=== PATIENT | female | born 1990 | race Caucasian/White ===

== ENCOUNTER 2018-09-26 19:36 | Emergency (ER) | payer SELFPAY ==
[2018-09-26 21:10] LABS: ABSOLUTE BASOPHILS # (AUTO) 0.1 10^3/uL (0.0-0.2); ABSOLUTE LYMPHOCYTES (AUTO) 2.1 10^3/uL (0.5-4.7); ABSOLUTE MONOCYTES (AUTO) 0.5 10^3/uL (0.1-1.4); ABSOLUTE NEUT (AUTO) 5.8 10^3/uL (1.7-8.2); BASOPHILS % (AUTO) 0.6 % (0-2); EOSINOPHILS % (AUTO) 0.4 % (0-6); HEMOGLOBIN 14.6 g/dL (12.0-15.5); LYMPHOCYTES % (AUTO) 24.9 % (13-45); MEAN CORPUSCULAR HEMOGLOBIN 30.9 pg (27.0-33.4); MEAN CORPUSCULAR HGB CONC 34.8 g/dL (32.0-36.0); MEAN CORPUSCULAR VOLUME 89 fl (80-97); MONOCYTES % (AUTO) 5.7 % (3-13); PLATELET COUNT 241 10^3/uL (150-450); RED BLOOD COUNT 4.73 10^6/uL (3.72-5.28); RED CELL DISTRIBUTION WIDTH 12.9 % (11.5-14.0); SEGMENTED NEUTROPHILS % (AUTO) 68.4 % (42-78); TOTAL CELLS COUNTED % (AUTO) 100 %; WHITE BLOOD COUNT 8.5 10^3/uL (4.0-10.5)
[2018-09-26 21:21] LABS: APPEARANCE,URINE CLOUDY; BILIRUBIN,URINE NEGATIVE (NEGATIVE); GLUCOSE, URINE NEGATIVE (NEGATIVE); KETONES,URINE 80 mg/dL (NEGATIVE); LEUKOCYTE ESTERASE,URINE TRACE (NEGATIVE); NITRITE,URINE POSITIVE (NEGATIVE); PROTEIN,URINE 30 mg/dL (NEGATIVE)
[2018-09-26 21:22] LABS: COLOR,URINE DARK YELLOW
[2018-09-26 21:30] LABS: ALANINE AMINOTRANSFERASE 20 U/L (9-52); ALBUMIN 4.9 g/dL (3.5-5.0); ALKALINE PHOSPHATASE 72 U/L (38-126); ANION GAP 17 (5-19); ASPARTATE AMINO TRANSFERASE 20 U/L (14-36); BILIRUBIN,DIRECT 0.4 mg/dL (0.0-0.4); BILIRUBIN,TOTAL 2.2 mg/dL (0.2-1.3); BLOOD UREA NITROGEN 15 mg/dL (7-20); CALCIUM 9.9 mg/dL (8.4-10.2); CARBON DIOXIDE 22 mmol/L (22-30); CHLORIDE 102 mmol/L (98-107); GLUCOSE 74 mg/dL (75-110); LIPASE 70.5 U/L (23-300); POTASSIUM 4.2 mmol/L (3.6-5.0); TOTAL PROTEIN 8.5 g/dL (6.3-8.2)
[2018-09-26] MEDS ORDERED: NORMAL SALINE 1000 ML 1,000 ML IV ONE (23:15)
[2018-09-26] MEDS ORDERED: SUCRALFATE 1 GM TABLET PO ONE (23:17)
[2018-09-26] MEDS ORDERED: FAMOTIDINE 20 MG TABLET PO ONE (23:17)
[2018-09-26] MEDS ORDERED: METOCLOPRAMIDE HCL ORAL SOLN 10 MG/10 ML UDCUP PO ONE (23:18)
[2018-09-26] MEDS ORDERED: LIDOCAINE 2% VISCOUS SOLN 20 ML UDCUP PO ONE (23:18)
[2018-09-26] MEDS ORDERED: MAG HYDROX/AL HYDROX/SIMETH SUSP 30 ML UDCUP PO ONE (23:18)
--- NOTE | 2018-09-26 23:21 | ER Document Report ---
ED General - General Chief Complaint: Abdominal Pain Stated Complaint: ABDOMINAL PAIN Time Seen by Provider: 09/26/18 21:28 Notes: Patient is a 28-year-old female without chronic medical problems, history of prior cholecystectomy who presents with several days of ongoing epigastric abdominal pain with involvement of the right upper quadrant and upper back. States the pain comes and goes. Worsened by eating or drinking. Notes associated nausea and vomiting as well as loose stools. States that she has a long-standing history of recurrent pain identical to today's. She states that this has been ongoing for at least 5 years ever since she had a cholecystectomy. She does not follow with a GI doctor her general physician regarding this issue. She has tried Zofran at home without improvement of her symptoms. She denies fever, chest pain, shortness of breath, but does also note mild dysuria that is been ongoing for the past 24 hours. TRAVEL OUTSIDE OF THE [place] IN LAST 30 DAYS: No - Related Data Allergies/Adverse Reactions: latex Allergy (Verified 09/26/18 20:52) morphine Allergy (Verified 09/26/18 20:52) Past Medical History - General Information source: Patient - Social History Smoking Status: Never Smoker Frequency of alcohol use: None Drug Abuse: Marijuana Lives with: Spouse/Significant other Family History: Reviewed & Not Pertinent Patient has suicidal ideation: No Patient has homicidal ideation: No Renal/ Medical History: Denies: Hx Peritoneal Dialysis Past Surgical History: Reports: Hx Cholecystectomy Review of Systems - Review of Systems Notes: Constitutional: Negative for fever. HENT: Negative for sore throat. Eyes: Negative for visual changes. Cardiovascular: Negative for chest pain. Respiratory: Negative for shortness of breath. Gastrointestinal: Positive for abdominal pain and vomiting Genitourinary: Positive for dysuria. Musculoskeletal: Negative for back pain. Skin: Negative for rash. Neurological: Negative for headaches, weakness or numbness. 10 point ROS negative except as marked above and in HPI. Physical Exam - Vital signs Vitals: Temp Pulse Resp BP Pulse Ox 98.4 F 89 18 138/83 H 98 09/26/18 19:51 09/26/18 19:51 09/26/18 19:51 09/26/18 19:51 09/26/18 19:51 Interpretation: Normal Notes: PHYSICAL EXAMINATION: GENERAL: Well-appearing, well-nourished and in no acute distress. HEAD: Atraumatic, normocephalic. EYES: Pupils equal round and reactive to light, extraocular movements intact, sclera anicteric, conjunctiva are normal. ENT: nares patent, oropharynx clear without exudates. Moderate dry mucous membranes. NECK: Normal range of motion, supple without lymphadenopathy LUNGS: Breath sounds clear to auscultation bilaterally and equal. No wheezes rales or rhonchi. HEART: Regular rate and rhythm without murmurs ABDOMEN: Soft, mild epigastric abdominal tenderness but no other localized areas of tenderness, normoactive bowel sounds. No guarding, no rebound. No masses appreciated. EXTREMITIES: Normal range of motion, no pitting or edema. No cyanosis. NEUROLOGICAL: No focal neurological deficits. Moves all extremities spontaneously and on command. PSYCH: Normal mood, normal affect. SKIN: Warm, Dry, normal turgor, no rashes or lesions noted. Course - Re-evaluation Re-evalutation: 09/26/18 23:16 Patient presents with epigastric abdominal pain with associated reflux symptoms most consistent with likely gastritis. Patient has no focal abdominal tenderness on examination. Patient has a remote history of a cholecystectomy. She reports that she has a long-standing history of similar symptoms, has been ongoing for at least 5-6 years. Lipase is normal. No LFT changes. Urinalysis is also consistent with an acute urinary tract infection although not pyelonephritis and I do not believe that accounts for her upper abdominal pain and vomiting. She has been started on cephalexin for treatment and a culture has been sent. Based on history and exam, I do not suspect ACS, pulmonary embolus, SBO, mesenteric ischemia, acute pancreatitis, biliary pathology, or an abdominal aortic dissection. Patient has had improvement of symptoms here with a GI cocktail. At this time will discharge with return precautions and follow- up recommendations. Verbal discharge instructions given a the bedside and opportunity for questions given. Medication warnings reviewed. Patient is in agreement with this plan and has verbalized understanding of return precautions and the need for primary care follow-up in the next 24-72 hours. - Vital Signs Vital signs: Temp Pulse Resp BP Pulse Ox 97.4 F 74 16 115/69 98 09/27/18 00:43 09/27/18 00:43 09/27/18 00:43 09/27/18 00:43 09/27/18 00:43 - Laboratory Result Diagrams: 09/26/18 20:55 09/26/18 20:55 Laboratory results interpreted by me: 09/26/18 09/26/18 20:37 20:55 Glucose 74 L Total Bilirubin 2.2 H Total Protein 8.5 H Urine Protein 30 H Urine Ketones 80 H Urine Blood SMALL H Urine Nitrite POSITIVE H Urine Urobilinogen 2.0 H Ur Leukocyte Esterase TRACE H Discharge - Discharge Clinical Impression: Epigastric abdominal pain Nausea and vomiting Qualifiers: Vomiting type: unspecified Vomiting Intractability: non-intractable Qualified Code(s): R11.2 - Nausea with vomiting, unspecified Urinary tract infection Qualifiers: Urinary tract infection type: acute cystitis Hematuria presence: without hematuria Qualified Code(s): N30.00 - Acute cystitis without hematuria Condition: Good Disposition: HOME, SELF-CARE Additional Instructions: Your symptoms appear to be most consistent with stomach or upper intestinal irritation. Please begin taking famotidine 40 mg in the morning and 40 mg at night. Please also take Carafate before meals. Take Reglan as needed for nausea or vomiting you may also take medicine such as Pepto-Bismol or Tums to assist with your pain. Please return to emergency department immediately if you have worsening of your pain, shortness of breath, vomiting, become unable to exert yourself due to pain or difficulty breathing, you pass out, or have any pain that radiates into your arms, jaw, or back. Please also return if you have any additional symptoms that are concerning to you. As we have discussed, the most important thing is lifestyle changes. You need to avoid smoking, sodas, tea, coffee, alcohol, spicy foods, and acidic foods such as citrus fruits, tomato based products, berries, and most fruit juices. Your urine shows findings consistent with a urinary tract infection. Please take all the antibiotics as directed even if your symptoms have improved. Please follow-up with your primary care physician as needed. Return to emergency room if you develop fever >101F, persistent vomiting, become lethargic , have severe pain in your sides, or any other symptoms that are concerning to you. Prescriptions: Cephalexin Monohydrate [Keflex 500 mg Capsule] 500 mg PO Q6H 5 Days capsule Famotidine 40 mg PO BID #60 tablet Metoclopramide HCl [Reglan 10 mg Tablet] 1 - 2 tab PO ASDIR PRN #25 tablet PRN Reason: Sucralfate [Carafate 1 gm Tablet] 1 gm PO ACHS #120 tablet Forms: Parent Work Note
[2018-09-26] MEDS ORDERED: CEPHALEXIN 500 MG CAPSULE PO ONE (23:22)
[2018-09-27 00:45] VITALS: BP 115/69
== END 2018-09-27 00:43 | disposition home or self-care (01) ==
LOC: ER 19:36
DX: N30.00 Acute cystitis without hematuria (principal); R10.13 Epigastric pain; R10.11 Right upper quadrant pain; M54.89 Other dorsalgia; R11.2 Nausea with vomiting, unspecified; R19.4 Change in bowel habit; R30.0 Dysuria; F12.10 Cannabis abuse, uncomplicated; Z90.49 Acquired absence of other specified parts of digestive tract; Z88.5 Allergy status to narcotic agent; Z91.040 Latex allergy status
CPT/HCPCS: 99284; 96360; 36415; 87086; 83690; 85025; 81025; 80053; 81001; J3490; J7030

== ENCOUNTER 2018-11-08 21:23 | Emergency (ER) | payer SELFPAY ==
[2018-11-09] MEDS ORDERED: SULFAMETHOXAZOLE/TRIMETHOPRIM 800-160 MG TABLET PO ONE (00:46)
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
[2018-11-09] MEDS ORDERED: ALPRAZOLAM 0.5 MG TABLET PO ONE (00:55)
[2018-11-09 02:32] LABS: APPEARANCE,URINE CLEAR; BILIRUBIN,URINE NEGATIVE (NEGATIVE); COLOR,URINE YELLOW; GLUCOSE, URINE NEGATIVE (NEGATIVE); KETONES,URINE NEGATIVE (NEGATIVE); LEUKOCYTE ESTERASE,URINE NEGATIVE (NEGATIVE); NITRITE,URINE POSITIVE (NEGATIVE); PROTEIN,URINE NEGATIVE (NEGATIVE); URINE SPECIFIC GRAVITY 1.015; UROBILINOGEN,URINE NEGATIVE mg/dL (<2.0)
[2018-11-09 02:45] LABS: ABSOLUTE EOSINOPHILS # (AUTO) 0.1 10^3/uL (0.0-0.6); ABSOLUTE LYMPHOCYTES (AUTO) 2.4 10^3/uL (0.5-4.7); ABSOLUTE MONOCYTES (AUTO) 0.5 10^3/uL (0.1-1.4); ABSOLUTE NEUT (AUTO) 4.7 10^3/uL (1.7-8.2); BASOPHILS % (AUTO) 0.1 % (0-2); EOSINOPHILS % (AUTO) 1.2 % (0-6); HEMATOCRIT 39.2 % (36.0-47.0); HEMOGLOBIN 13.3 g/dL (12.0-15.5); LYMPHOCYTES % (AUTO) 30.7 % (13-45); MEAN CORPUSCULAR HEMOGLOBIN 30.4 pg (27.0-33.4); MEAN CORPUSCULAR HGB CONC 33.9 g/dL (32.0-36.0); MEAN CORPUSCULAR VOLUME 90 fl (80-97); MONOCYTES % (AUTO) 6.5 % (3-13); PLATELET COUNT 241 10^3/uL (150-450); RED BLOOD COUNT 4.37 10^6/uL (3.72-5.28); RED CELL DISTRIBUTION WIDTH 13.1 % (11.5-14.0); SEGMENTED NEUTROPHILS % (AUTO) 61.5 % (42-78); TOTAL CELLS COUNTED % (AUTO) 100 %; WHITE BLOOD COUNT 7.7 10^3/uL (4.0-10.5)
[2018-11-09 02:53] LABS: URINE AMPHETAMINES SCREEN NEGATIVE; URINE BARBITURATES SCREEN NEGATIVE; URINE BENZODIAZEPINES SCREEN NEGATIVE; URINE COCAINE SCREEN NEGATIVE; URINE MARIJUANA (THC) SCREEN NEGATIVE; URINE METHADONE SCREEN NEGATIVE; URINE PHENCYCLIDINE SCREEN NEGATIVE
[2018-11-09 03:04] LABS: ACETAMINOPHEN < 10 ug/mL (10-30); ALANINE AMINOTRANSFERASE 20 U/L (9-52); ALBUMIN 4.5 g/dL (3.5-5.0); ALCOHOL < 10 mg/dL (NONE DETECTED); ALKALINE PHOSPHATASE 53 U/L (38-126); ANION GAP 13 (5-19); ASPARTATE AMINO TRANSFERASE 13 U/L (14-36); BILIRUBIN,DIRECT 0.1 mg/dL (0.0-0.4); BILIRUBIN,TOTAL 0.5 mg/dL (0.2-1.3); BLOOD UREA NITROGEN 16 mg/dL (7-20); CALCIUM 9.5 mg/dL (8.4-10.2); CARBON DIOXIDE 25 mmol/L (22-30); CHLORIDE 104 mmol/L (98-107); GLUCOSE 93 mg/dL (75-110); POTASSIUM 3.4 mmol/L (3.6-5.0); SALICYLATE < 1.0 mg/dL (2.0-20.0); TOTAL PROTEIN 7.6 g/dL (6.3-8.2)
[2018-11-09] MEDS: OLANZAPINE 5 MG TABLET PO SCH ×2 (13:01→17:33)
[2018-11-09] MEDS: BENZTROPINE MESYLATE 1 MG TABLET PO SCH (13:01)
--- NOTE | 2018-11-09 13:12 | EKG REPORT ---
SEVERITY:- BORDERLINE ECG - SINUS RHYTHM BORDERLINE PROLONGED QT INTERVAL : Confirmed by: Bridget Lord MD 09-Nov-2018 13:11:41
--- NOTE | 2018-11-09 13:12 | EKG REPORT ---
SEVERITY:- DEFECTIVE ECG - ALL 12 LEADS ARE MISSING : Confirmed by: Bridget Lord MD 09-Nov-2018 13:11:49
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
--- NOTE | 2018-11-09 17:30 | ER Document Report ---
Doctor's Note Notes: 11/09/18 17:30 This 28-year-old female patient's chart was reviewed and I went and spoke with her and examined her. She came in yesterday complaining about an insect bite to the left lateral distal leg given 1 Septra DS tablet yesterday and prescriptions were written for Septra DS and Keflex. At the time on questioning , she was found to be depressed and having suicidal ideation so she was kept here. She was placed on IVC papers and started on Zyprexa and Cogentin today. She has done well today. I did examine the area on her left distal lateral leg, and it is suspicious for an MRSA type abscess. She then told me that she had another one on her back, and on her left upper medial scapular back region there is no other lesion that is starting to point with some erythema and also consistent with a MRSA abscess. The fact that she has at least 2 of these simultaneously does suggest MRSA. She will be started on Septra DS 2 tablets twice daily at this time.
[2018-11-09] MEDS ORDERED: SULFAMETHOXAZOLE/TRIMETHOPRIM 800-160 MG TABLET PO SCH (18:00)
[2018-11-09] MEDS ORDERED: ACETAMINOPHEN 325 MG TABLET PO PRN (23:17)
[2018-11-09] MEDS ORDERED: CIPROFLOXACIN HCL 500 MG TABLET PO SCH (23:30)
[2018-11-10 00:03] LABS: ABSOLUTE EOSINOPHILS # (AUTO) 0.1 10^3/uL (0.0-0.6); TOTAL CELLS COUNTED % (AUTO) 100 %
[2018-11-10 00:16] LABS: ABSOLUTE LYMPHOCYTES (AUTO) 2.3 10^3/uL (0.5-4.7); ABSOLUTE MONOCYTES (AUTO) 0.6 10^3/uL (0.1-1.4); ABSOLUTE NEUT (AUTO) 2.9 10^3/uL (1.7-8.2); BASOPHILS % (AUTO) 0.2 % (0-2); HEMOGLOBIN 13.6 g/dL (12.0-15.5); LYMPHOCYTES % (AUTO) 38.7 % (13-45); MEAN CORPUSCULAR HGB CONC 34.1 g/dL (32.0-36.0); MEAN CORPUSCULAR VOLUME 91 fl (80-97); MONOCYTES % (AUTO) 9.7 % (3-13); PLATELET COUNT 248 10^3/uL (150-450); RED BLOOD COUNT 4.41 10^6/uL (3.72-5.28); RED CELL DISTRIBUTION WIDTH 13.1 % (11.5-14.0); SEGMENTED NEUTROPHILS % (AUTO) 49.4 % (42-78); WHITE BLOOD COUNT 5.9 10^3/uL (4.0-10.5)
--- NOTE | 2018-11-10 09:52 | ER Document Report ---
Doctor's Note Notes: 11/10/18 09:48 Rounds: Chart reviewed and patient interviewed. Sleeping when I enter the room but awakened easily. Patient is being evaluated for bipolar disorder and posttraumatic stress disorder. Says she is feeling better than when she was admitted. Patient says she came in for an insect bite to her left lower leg. She has a small 2 cm lesion on the lower lateral aspect of her left lower leg, which the patient says is better since we start her on antibiotics. Not a very dramatic appearing lesion to begin with. She had been started on Cipro for possible UTI because she had positive nitrites and some bacteria in her urine. She has no symptoms of a UTI. For these reasons and the likelihood that Septra will be more likely to treat her UTIs and Cipro in this hospital, I have discontinued her Cipro and put her on Septra DS twice a day and she will be discharged on that to cover both a possible UTI and a possible MRSA infection of her left lower leg. Patient's vital signs are all essentially normal. Blood pressure 98/57 noted and will be checked. Patient appears to be medically stable for transfer or discharge. Mami Kessler MD
[2018-11-10] MEDS: BENZTROPINE MESYLATE 1 MG TABLET PO SCH (09:59)
[2018-11-10] MEDS: OLANZAPINE 5 MG TABLET PO SCH (09:59)
[2018-11-10] MEDS ORDERED: SULFAMETHOXAZOLE/TRIMETHOPRIM 800-160 MG TABLET PO SCH (10:00)
[2018-11-10 10:17] VITALS: BP 116/68
--- NOTE | 2018-11-10 11:20 | PSYCHOLOGICAL NOTE ---
Psych Note - Psych Note Date seen by psych provider: 11/10/18 Time seen by psych provider: 09:50 Psych Note: Reason for Consult:suicidal ideation Contact Permissions: Emergency Contact/Zander Peres, Conducted check-in with patient Patient reports that she is feeling better and does not have any concerns of continued thoughts of wanting to harm herself. She states that she would like to continue taking the medications and identifies her boyfriend as her support system. She states that she currently has a job with [employer] so will be able to afford medications. She states that she just needs assistance in obtaining outpatient mental health services. Clinician spoke with patient's boyfriend, Zander, who discloses he has no concerns with the patient returning home. He reports that he is willing to be part of the patient's plan of care i.e. ensure that she does not have access to medications weapons and follows through with mental health recommendations. He confirms that he will assist the patient in going to her appointment tomorrow with [facility] at 10:30 AM. Medication recommendations made by the psychiatric medical provider, Orlando Bowie MD., includes: Add Zyprexa 5MG twice a day for mood stabilization/impulse control Add Cogentin 1MG daily to curb tremor side effects often associated with antipsychotic medications Diagnosis: 296.80 (F31.9) Unspecified Bipolar Related Disorder by History R/O 309.81 (F43.10) Posttraumatic Stress Disorder Impression/Plan: Patient is recommended for rescind of IVC and is cleared from acute psychiatric services. Patient no longer meets IVC criteria per [place] GS 122C. Patient denies thoughts of wanting to harm herself. She reports that she would like to continue taking the medication prescribed and states she has no problems filling the prescriptions. She identifies her boyfriend as as her support. Behavior health team contacted the patient's boyfriend who confirms he will be part of the patient's plan of care (i.e. ensure states she does not have access to medications weapons and follows through with mental health recommendations). He reports he has no concern with the returning home at this time. Patient is recommended to follow-up with outpatient mental health services through [facility] tomorrow 11/11/2018 at 10:30 AM for continued outpatient mental health services in the form of both medication management and therapeutic intervention. Dr. Martini was consulted and the care management this patient; attending physicians in agreement with recommendations and disposition
== END 2018-11-10 11:38 | disposition home or self-care (01) ==
LOC: ER 21:23
DX: R45.851 Suicidal ideations (principal); F31.9 Bipolar disorder, unspecified; F43.10 Post-traumatic stress disorder, unspecified; S80.862A Insect bite (nonvenomous), left lower leg, initial encounter; W57.XXXA Bitten or stung by nonvenomous insect and other nonvenomous arthropods, initial encounter; Z88.6 Allergy status to analgesic agent; Z91.040 Latex allergy status
CPT/HCPCS: 36415; 80053; 80307; 81001; 84703; 85025; 87086; 87088; 87186; 93005; 93010; 99285

== ENCOUNTER 2018-11-22 01:28 | Emergency (ER) | payer SELFPAY ==
[2018-11-22 01:44] VITALS: BP 125/80
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
[2018-11-22] MEDS ORDERED: ONDANSETRON ODT 4 MG TAB (6 TAB/ER DISP) PO PRN (03:04)
== END 2018-11-22 03:16 | disposition home or self-care (01) ==
LOC: ER 01:28
DX: S06.0X1A Concussion with loss of consciousness of 30 minutes or less, initial encounter (principal); X58.XXXA Exposure to other specified factors, initial encounter; Z87.891 Personal history of nicotine dependence; Z88.6 Allergy status to analgesic agent; Z91.040 Latex allergy status
CPT/HCPCS: 70450; 99284

== ENCOUNTER 2019-03-16 19:18 | Emergency (ER) | payer SELFPAY ==
--- NOTE | 2019-03-16 20:12 | ER Document Report ---
ED Medical Screen (RME) - General Chief Complaint: Vaginal Bleeding Stated Complaint: ABDOMINAL PAIN Time Seen by Provider: 03/16/19 20:05 TRAVEL OUTSIDE OF THE [place] IN LAST 30 DAYS: No - HPI Notes: 03/16/19 20:10 Patient is a 28-year-old female with history of cholecystectomy who presents emergency department complaining of vaginal bleeding outside of her normal cycle times. Patient states that this is been ongoing for a long time, but she is having lower pelvic cramping and pain with this 1 with some vaginal discharge. She is otherwise eating and drinking without difficulty. She is urinating n ormally and having normal bowel movements. Denies GOMEZ, fever, neck pain, URI, CP, SOB, or rash. I have treated and performed a rapid initial assessment of this patient. A comprehensive ED assessment and evaluation of the patient, analysis of test results and completion of medical decision making process will be conducted by additional ED providers. PHYSICAL EXAMINATION: GENERAL: Well-appearing, well-nourished and in no acute distress. A&Ox4. Answers questions appropriately. LUNGS: Breath sounds clear to auscultation bilaterally and equal. No wheezes rales or rhonchi. HEART: Regular rate and rhythm without murmurs, rubs, gallops. ABDOMEN: Soft, nondistended abdomen. No guarding, no rebound. Normal bowel sounds present. No CVA tenderness bilaterally. + mild lower pelvic tenderness (cannot elicit thorough abd exam w/o table, however). - Related Data Allergies/Adverse Reactions: latex Allergy (Verified 11/22/18 01:40) morphine Allergy (Verified 11/22/18 01:40) Past Medical History - Social History Frequency of alcohol use: Social Drug Abuse: Marijuana Pulmonary Medical History: Reports: Hx Asthma Renal/ Medical History: Denies: Hx Peritoneal Dialysis Psychiatric Medical History: Reports: Hx Anxiety, Hx Bipolar Disorder, Hx Depression - and anxiety Past Surgical History: Reports: Hx Section - x 3, Hx Cholecystectomy, Hx Tubal Ligation Physical Exam - Vital signs Vitals: Temp Pulse Resp BP Pulse Ox 98.5 F 80 16 110/64 98 03/16/19 19:25 03/16/19 19:25 03/16/19 19:25 03/16/19 19:25 03/16/19 19:25 Course - Vital Signs Vital signs: Temp Pulse Resp BP Pulse Ox 98.5 F 80 16 110/64 98 03/16/19 19:25 03/16/19 19:25 03/16/19 19:25 03/16/19 19:25 03/16/19 19:25
[2019-03-16 20:44] LABS: APPEARANCE,URINE SLIGHTLY-CLOUDY; BILIRUBIN,URINE NEGATIVE (NEGATIVE); COLOR,URINE YELLOW; GLUCOSE, URINE NEGATIVE (NEGATIVE); KETONES,URINE NEGATIVE (NEGATIVE); LEUKOCYTE ESTERASE,URINE NEGATIVE (NEGATIVE); NITRITE,URINE NEGATIVE (NEGATIVE); PROTEIN,URINE NEGATIVE (NEGATIVE); URINE SPECIFIC GRAVITY 1.023; UROBILINOGEN,URINE NEGATIVE mg/dL (<2.0)
--- NOTE | 2019-03-16 23:04 | ER Document Report ---
ED GI/ - General Chief Complaint: Vaginal Bleeding Stated Complaint: ABDOMINAL PAIN Time Seen by Provider: 03/16/19 20:05 Primary Care Provider: [facility] [Outside] - Follow up as needed Mode of Arrival: Ambulatory Information source: Patient Notes: Patient is a 28-year-old otherwise healthy female presenting with vaginal bleeding and abnormal vaginal discharge. Patient reports she has had abnormal bleeding for several years ever since she had her tubes tied. Patient reports that she has 2-3-week long periods every month. She also reports foul-smelling thick yellowish vaginal discharge monthly. She denies any fever, nausea, vomiting or diarrhea. TRAVEL OUTSIDE OF THE [place] IN LAST 30 DAYS: No - Related Data Allergies/Adverse Reactions: latex Allergy (Verified 11/22/18 01:40) morphine Allergy (Verified 11/22/18 01:40) Past Medical History - General Information source: Patient - Social History Smoking Status: Never Smoker Frequency of alcohol use: Social Drug Abuse: Marijuana Family History: Reviewed & Not Pertinent Patient has suicidal ideation: No Patient has homicidal ideation: No Pulmonary Medical History: Reports: Hx Asthma Renal/ Medical History: Denies: Hx Peritoneal Dialysis Psychiatric Medical History: Reports: Hx Anxiety, Hx Bipolar Disorder, Hx Depression - and anxiety Past Surgical History: Reports: Hx Section - x 3, Hx Cholecystectomy, Hx Tubal Ligation Review of Systems - Review of Systems Constitutional: No symptoms reported EENT: No symptoms reported Cardiovascular: No symptoms reported Respiratory: No symptoms reported Gastrointestinal: No symptoms reported Genitourinary: No symptoms reported Female Genitourinary: Heavy/abnormal periods, Vaginal discharge Musculoskeletal: No symptoms reported Skin: No symptoms reported Hematologic/Lymphatic: No symptoms reported Neurological/Psychological: No symptoms reported Physical Exam - Vital signs Vitals: Temp Pulse Resp BP Pulse Ox 98.5 F 80 16 110/64 98 03/16/19 19:25 03/16/19 19:25 03/16/19 19:25 03/16/19 19:25 03/16/19 19:25 - Notes Notes: PHYSICAL EXAMINATION: GENERAL: Well-appearing, well-nourished and in no acute distress. HEAD: Atraumatic, normocephalic. EYES: Pupils equal round and reactive to light, extraocular movements intact, conjunctiva are normal. ENT: Nares patent, oropharynx clear without exudates. Moist mucous membranes. NECK: Normal range of motion, supple without lymphadenopathy LUNGS: Breath sounds clear to auscultation bilaterally and equal. No wheezes rales or rhonchi. HEART: Regular rate and rhythm without murmurs ABDOMEN: Soft, nontender, nondistended abdomen. No guarding, no rebound. No masses appreciated. Female : Normal external genitalia, no cervical motion tenderness, large amount of yellowish vaginal discharge from the cervix. Musculoskeletal: Normal range of motion, no pitting or edema. No cyanosis. NEUROLOGICAL: Cranial nerves grossly intact. Normal speech, normal gait. Normal sensory, motor exams PSYCH: Normal mood, normal affect. SKIN: Warm, Dry, normal turgor, no rashes or lesions noted. Course - Re-evaluation Re-evalutation: History and physical examination are consistent with bacterial vaginosis, wet mount shows 3+ bacteria. Will start patient on oral Flagyl and discharged home in stable condition. - Vital Signs Vital signs: Temp Pulse Resp BP Pulse Ox 98.0 F 73 16 96/59 L 100 03/17/19 02:25 03/17/19 02:25 03/17/19 02:25 03/17/19 02:25 03/17/19 02:25 - Laboratory Laboratory results interpreted by me: 03/16/19 20:18 Urine Blood MODERATE H Discharge - Discharge Clinical Impression: Bacterial vaginosis Condition: Stable Disposition: HOME, SELF-CARE Additional Instructions: Vaginosis, Bacterial Your exam shows you have bacterial vaginosis. This condition is due to an overgrowth of bacteria in the vagina. Symptoms may include vaginal itching or pain, a smelly discharge, and sometimes burning with urination. Normally this is not transmitted by sexual contact. Vaginosis can be treated with oral or topical antibiotics. Metronidazole (Flagyl) pills are usually effective. Topical vaginal creams include Cleocin and Metro-Gel. You should avoid sexual contact until your symptoms are all better. Call the doctor if you develop pelvic pain, fever, or problems with urination, or if you don't improve as expected. Vaginal Bleeding You are having an episode of abnormal bleeding. Causes of abnormal vaginal bleeding can include miscarriage or tubal , tumors such as cancer or benign fibroids, medication effects, or hormone imbalance. Testing can eliminate unsuspected , tumors, or infection as a cause. "Dysfunctional uterine bleeding" is due to hormone imbalance, and is especially common at times when the normal cycle is disturbed -- whether by recent , use of control pills or hormones, or impending menopause. If the bleeding is innocent, most commonly a short course of hormones is given to restore the uterus to normal. Sometimes, the normal menstrual cycle corrects itself naturally. Sometimes, brief hormone therapy, or even a D&C is required. Your physician will advise you. Treatment for anemia may be required if bleeding is severe. You should rest and avoid intercourse until the bleeding is controlled. Call the doctor or return for re-examination if you feel faint, have increasing pain, or have a major increase in the amount of bleeding. Please take medication as prescribed for the bacterial infection. Please do not stop taking medications even if your symptoms resolve. Please follow-up with the [facility], I have enclosed their contact info below. You may want to consider trying to go on to oral contraceptives or consider getting a uterine ablation for your vaginal bleeding. Return to the emergency department with any new or worsening symptoms. Prescriptions: Metronidazole [Flagyl 500 mg Tablet] 500 mg PO BID #14 tablet Forms: Return to Work Referrals: [facility] [Outside] - Follow up as needed
[2019-03-17 01:44] LABS: BACTERIA (WET MOUNT) 3+ BACTERIA SEEN; EPITHELIALS (WET MOUNT) 3+ EPITHELIALS SEEN; T.VAGINALIS (WET MOUNT) NO TRICHOMONAS SEEN; WBCS (WET MOUNT) 1+ WBCS SEEN; YEAST (WET MOUNT) NO YEAST SEEN
[2019-03-17 02:28] VITALS: BP 96/59
[2019-03-17 03:10] LABS: CHLAM PCR NOT DETECTED (NOT DETECT); GON PCR NOT DETECTED (NOT DETECT)
--- NOTE | 2019-03-17 08:25 | RADIOLOGY REPORT (SQ) ---
EXAM DESCRIPTION: U/S NON OB PEL TV W/DOPPLER COMPLETED DATE/TIME: 03/16/2019 9:10 pm REASON FOR STUDY: pelvic pain, dysmenorrhea COMPARISON: None. TECHNIQUE: Dynamic and static grayscale images acquired of the pelvis via transvaginal approach and recorded on PACS. Additional selected color Doppler and spectral images recorded. LIMITATIONS: Left ovary not visualized due to adnexal bowel gas FINDINGS: UTERUS: Contour normal. No mass. Uterus is 9 x 4 x 5 cm in size ENDOMETRIAL STRIPE: No focal or generalized thickening. No masses. Endometrium 7 mm in thickness CERVIX: No nabothian cysts. RIGHT OVARY AND DOPPLER: Normal size, 3.1 x 2.8 x 1.9 cm in size. No worrisome masses. Normal arteria l vascular flow without evidence for torsion. LEFT OVARY AND DOPPLER: Not seen due to adnexal bowel gas FREE FLUID: None noted. OTHER: No other significant finding. IMPRESSION: LEFT OVARY NOT VISUALIZED. OTHERWISE, UNREMARKABLE TRANSVAGINAL PELVIC ULTRASOUND. COMMENT: This report was called to Francesca Shepard RN, charge nurse in the emergency room 0800 hour s 03/17/2019. TECHNICAL DOCUMENTATION: JOB ID: [id number] [employer]- All Rights Reserved Rev Reading location - IP/workstation name: [email or web address]
== END 2019-03-17 02:29 | disposition home or self-care (01) ==
LOC: ER 19:18
DX: N76.0 Acute vaginitis (principal); B96.89 Other specified bacterial agents as the cause of diseases classified elsewhere; N93.8 Other specified abnormal uterine and vaginal bleeding; Z88.6 Allergy status to analgesic agent; Z91.040 Latex allergy status; Z90.49 Acquired absence of other specified parts of digestive tract; Z98.51 Tubal ligation status
CPT/HCPCS: 76830; 81001; 81025; 87210; 87491; 87591; 93976; 99284